=== PATIENT | female | born 1975 | race Caucasian/White ===

== ENCOUNTER 2017-09-15 21:06 | Inpatient (IN) | payer MEDICAID ==
[2017-09-15] MEDS: SODIUM CHLORIDE 0.9% 1L BAG IV* (22:26)
[2017-09-15] MEDS: morphine 4 MG/ML VIAL IV (22:26)
[2017-09-15] MEDS: CEFEPIME 2GM/50 ML (PMX) 50 ML IVPB (22:26)
[2017-09-15] MEDS: ONDANSETRON 4 MG INJ IV (22:26)
[2017-09-15 22:40] LABS: ADD MAN DIFF? NO
[2017-09-15 22:42] LABS: ABNORMAL IP MESSAGE 1; BASOPHIL # 0.1 10^3/ul (0.0-0.1); BASOPHILS % 0.2 % (0.0-2.0); EOSINOPHILS % 0.1 % (0.0-7.0); HEMATOCRIT 43.1 % (37.0-47.0); HEMOGLOBIN 14.8 g/dl (12.0-16.0); LYMPHOCYTES # 1.9 10^3/ul (0.8-2.9); LYMPHOCYTES % 8.8 % (15.0-51.0); MEAN CORPUSCULAR HEMOGLOBIN 29.6 pg (29.0-33.0); MEAN CORPUSCULAR HGB CONC 34.3 g/dl (32.0-37.0); MEAN CORPUSCULAR VOLUME 86.2 fl (82.0-101.0); MEAN PLATELET VOLUME 10.5 fl (7.4-10.4); MONOCYTE # 1.6 10^3/ul (0.3-0.9); MONOCYTES % 7.2 % (0.0-11.0); NEUTROPHIL # 17.8 10^3/ul (1.6-7.5); NEUTROPHILS % 82.9 % (39.0-77.0); PLATELET COUNT 270 10^3/UL (140-415); RED CELL DISTRIBUTION WIDTH 12.5 % (11.5-14.5)
[2017-09-15 22:42] LABS: WHITE BLOOD COUNT 21.5 10^3/ul (4.8-10.8)
[2017-09-15 22:50] LABS: POSITIVE DIFF @See below
[2017-09-15 23:00] LABS: ALANINE AMINOTRANSFERASE 57 IU/L (13-69); ALBUMIN 4.4 g/dl (3.3-4.9); ALBUMIN/GLOBULIN RATIO 1.18; ALKALINE PHOSPHATASE 116 IU/L (42-121); ANION GAP 20 (8-16); ASPARTATE AMINO TRANSFERASE 37 IU/L (15-46); BILIRUBIN,INDIRECT 0.1 mg/dl (0-1.1); BILIRUBIN,TOTAL 0.1 mg/dl (0.2-1.3); BLOOD UREA NITROGEN 18 mg/dl (7-20); CALCIUM 9.1 mg/dl (8.4-10.2); CARBON DIOXIDE 26 mmol/L (21-31); CHLORIDE 98 mmol/L (97-110); CREATININE 0.68 mg/dl (0.44-1.00); GLUCOSE 297 mg/dl (70-220); POTASSIUM 4.1 mmol/L (3.5-5.1); SODIUM 140 mmol/L (135-144); TOTAL PROTEIN 8.1 g/dl (6.1-8.1)
[2017-09-15 23:01] LABS: INR 0.88; PT RATIO 0.9
[2017-09-15 23:02] LABS: PARTIAL THROMBOPLASTIN TIME 25.4 Sec (25.0-35.0)
[2017-09-15 23:12] LABS: TROPONIN-I < 0.012 ng/ml (0.00-0.12)
[2017-09-16 00:06] LABS: URINE BLOOD (Dip) POC Trace-lysed (NEGATIVE); URINE KETONES (Dip) POC Negative (NEGATIVE); URINE LEUKOCYTE EST (Dip) POC Negative (NEGATIVE); URINE NITRITE (Dip) POC Negative (NEGATIVE); URINE TOTAL PROTEIN POC Negative (NEGATIVE)
[2017-09-16 00:29] LABS: ADD UMIC YES; UR ASCORBIC ACID NEGATIVE (NEGATIVE); UR BACTERIA FEW /HPF (NONE SEEN); UR BILIRUBIN (Dip) NEGATIVE (NEGATIVE); UR BLOOD (Dip) 1+ mg/dL (NEGATIVE); UR CLARITY SLIGHTLY CLOUDY (CLEAR); UR COLOR YELLOW (YELLOW); UR GLUCOSE (Dip) 3+ mg/dL (NEGATIVE); UR KETONES (Dip) TRACE mg/dL (NEGATIVE); UR LEUKOCYTE ESTERASE (Dip) NEGATIVE Leu/ul (NEGATIVE); UR MUCUS FEW /HPF (NONE SEEN); UR NITRITE (Dip) NEGATIVE (NEGATIVE); UR RBC 1 /HPF (0-5); UR SPECIFIC GRAVITY (Dip) 1.012 (1.003-1.030); UR SQUAMOUS EPITHELIAL CELL FEW /HPF (FEW); UR TOTAL PROTEIN (Dip) NEGATIVE (NEGATIVE); UR UROBILINOGEN (Dip) NEGATIVE (NEGATIVE); UR WBC 1 /HPF (0-5)
[2017-09-16 01:02] LABS: LACTIC ACID 1.7 mmol/L (0.5-2.0)
[2017-09-16] MEDS: metroNIDAZOLE 500 MG/NS (PMX) 100 ML IVPB (01:27)
[2017-09-16 01:52] LABS: LIPASE 66 U/L (23-300)
[2017-09-16 04:38] LABS: LACTIC ACID 1.1 mmol/L (0.5-2.0)
[2017-09-16] MEDS ORDERED: ONDANSETRON 4 MG INJ IV ×3 (05:30→19:00)
[2017-09-16] MEDS ORDERED: NACL 0.9% 3 ML SYG IV (05:30)
[2017-09-16] MEDS: PIPER-TAZO 3.375 GM IV (PMX) 100 ML IVPB ×4 (05:34→23:14)
[2017-09-16] MEDS: DEXTROSE 5%-0.45% NACL 1,000 ML IV ×2 (05:34→15:14)
[2017-09-16] MEDS: morphine 2 MG INJ IV (05:45)
[2017-09-16] MEDS ORDERED: GLUCOSE GEL 15 GRAM TUBE PO ×2 (08:30)
[2017-09-16] MEDS ORDERED: GLUCAGON 1 MG INJ IM (08:30)
[2017-09-16] MEDS ORDERED: GLUCOSE GEL 15 GRAM TUBE BUCCAL (08:30)
[2017-09-16] MEDS ORDERED: DEXTROSE 50% 50 ML SYRINGE IV ×2 (08:30)
[2017-09-16] MEDS: FAMOTIDINE 20 MG INJ IV ×2 (09:04→23:04)
[2017-09-16] MEDS: ACETAMINOPHEN 1000 MG/100 ML IVPB IVPB (09:04)
[2017-09-16 12:04] LABS: HEMOGLOBIN A1C 10.7 % (0-5.9)
[2017-09-16] MEDS: INSULIN ASPART [NOVOLOG] 3 ML PEN SC ×3 (12:15→23:12)
[2017-09-16 14:24] LABS: ALANINE AMINOTRANSFERASE 60 IU/L (13-69); ALBUMIN 4.2 g/dl (3.3-4.9); ALKALINE PHOSPHATASE 120 IU/L (42-121); ASPARTATE AMINO TRANSFERASE 41 IU/L (15-46); BILIRUBIN,INDIRECT 0.2 mg/dl (0-1.1); BILIRUBIN,TOTAL 0.2 mg/dl (0.2-1.3); TOTAL PROTEIN 7.7 g/dl (6.1-8.1)
[2017-09-16] MEDS ORDERED: LIDOCAINE 1%/EPI 30 ML INJ (18:17)
[2017-09-16] MEDS ORDERED: BUPIVACAINE 0.25% (MPF) 30 ML INJ (18:17)
[2017-09-16] MEDS ORDERED: ROCURONIUM 50 MG INJ (18:24)
[2017-09-16] MEDS ORDERED: LIDOCAINE 2% (SDV) 5 ML INJ (18:24)
[2017-09-16] MEDS ORDERED: MIDAZOLAM 1 MG/ML 2 ML INJ (18:24)
[2017-09-16] MEDS ORDERED: SUCCINYLCHOLINE CHLORIDE 100 MG/5 ML SYG IV (18:24)
[2017-09-16] MEDS ORDERED: PROPOFOL 20 ML (18:24)
[2017-09-16] MEDS ORDERED: FENTAnyl 50 MCG/ML VIAL (18:25)
[2017-09-16] MEDS ORDERED: ROPIVACAINE 0.5 % 30 ML VIAL (18:27)
[2017-09-16] MEDS ORDERED: DIPHENHYDRAMINE 50 MG INJ IV (18:30)
[2017-09-16] MEDS ORDERED: PROCHLORPERAZINE 10 MG INJ IV (18:30)
[2017-09-16] MEDS ORDERED: HYDROmorphONE (0.2 MG/ML) 10ML SYG IV (18:30)
[2017-09-16] MEDS ORDERED: FENTAnyl 50 MCG/ML VIAL IV (18:30)
[2017-09-16] MEDS ORDERED: MEPERIDINE 25 MG INJ IV (18:30)
[2017-09-16] MEDS ORDERED: ONDANSETRON 4 MG INJ (18:53)
[2017-09-16] MEDS ORDERED: FAMOTIDINE 20 MG INJ (18:53)
[2017-09-16] MEDS ORDERED: IBUPROFEN 600 MG TAB PO (19:00)
[2017-09-16] MEDS ORDERED: HYDROCODONE/APAP (5/325) TAB PO (19:00)
[2017-09-16] MEDS: LIDOCAINE 1%/EPI 30 ML INJ INJ (19:00)
[2017-09-16] MEDS: BUPIVACAINE 0.25% (MPF) 30 ML INJ INJ (19:04)
[2017-09-16] MEDS: SODIUM CHLORIDE 0.9% 1L IRRIG IRR (19:04)
[2017-09-16] MEDS ORDERED: SUGAMMADEX SODIUM 200 MG/2 ML VIAL IV ×2 (19:05→19:06)
[2017-09-16] MEDS ORDERED: ACETAMINOPHEN 1000MG/100ML IV 100 ML (19:21)
[2017-09-16] MEDS ORDERED: KETOROLAC 30 MG INJ (19:47)
[2017-09-16] MEDS ORDERED: HYDROmorphONE 2 MG/ML SYG (19:48)
[2017-09-16] MEDS: HYDROmorphONE 0.5 MG/0.5 ML SYG IV (23:02)
[2017-09-16] MEDS: D5W-0.45 NACL + KCL 20 MEQ 1,000 ML IV (23:08)
[2017-09-17] MEDS ORDERED: PIPER-TAZO 3.375 GM IV (PMX) 100 ML IVPB
[2017-09-17] MEDS: DEXTROSE 5%-0.45% NACL 1,000 ML IV (01:14)
[2017-09-17] MEDS: ACCU-CHEK XX (02:00)
[2017-09-17] MEDS: D5W-0.45 NACL + KCL 20 MEQ 1,000 ML IV (05:17)
[2017-09-17 05:45] LABS: ADD MAN DIFF? NO
[2017-09-17 05:50] LABS: WHITE BLOOD COUNT 15.3 10^3/ul (4.8-10.8)
[2017-09-17 05:50] LABS: BASOPHILS % 0.3 % (0.0-2.0); EOSINOPHILS % 0.1 % (0.0-7.0); HEMOGLOBIN 12.4 g/dl (12.0-16.0); LYMPHOCYTES # 1.6 10^3/ul (0.8-2.9); LYMPHOCYTES % 10.4 % (15.0-51.0); MEAN CORPUSCULAR HEMOGLOBIN 30.5 pg (29.0-33.0); MEAN CORPUSCULAR HGB CONC 34.4 g/dl (32.0-37.0); MEAN CORPUSCULAR VOLUME 88.7 fl (82.0-101.0); MEAN PLATELET VOLUME 10.6 fl (7.4-10.4); MONOCYTES % 6.7 % (0.0-11.0); NEUTROPHIL # 12.6 10^3/ul (1.6-7.5); NEUTROPHILS % 82.1 % (39.0-77.0); PLATELET COUNT 201 10^3/UL (140-415); RED BLOOD COUNT 4.06 10^6/ul (4.20-5.40); RED CELL DISTRIBUTION WIDTH 12.9 % (11.5-14.5)
[2017-09-17] MEDS: ACETAMINOPHEN 325 MG TAB PO ×3 (05:59→18:43)
[2017-09-17] MEDS: PIPER-TAZO 3.375 GM IV (PMX) 100 ML IVPB ×3 (05:59→17:45)
[2017-09-17] MEDS: HYDROmorphONE 0.5 MG/0.5 ML SYG IV ×4 (06:05→20:09)
[2017-09-17] MEDS: ENOXAPARIN 40 MG/0.4 ML SYG SC (06:13)
[2017-09-17 06:20] LABS: ALANINE AMINOTRANSFERASE 71 IU/L (13-69); ALBUMIN 3.3 g/dl (3.3-4.9); ALBUMIN/GLOBULIN RATIO 0.91; ALKALINE PHOSPHATASE 95 IU/L (42-121); ANION GAP 14 (8-16); ASPARTATE AMINO TRANSFERASE 90 IU/L (15-46); BILIRUBIN,INDIRECT 0.1 mg/dl (0-1.1); BILIRUBIN,TOTAL 0.1 mg/dl (0.2-1.3); BLOOD UREA NITROGEN 8 mg/dl (7-20); CALCIUM 8.4 mg/dl (8.4-10.2); CARBON DIOXIDE 26 mmol/L (21-31); CHLORIDE 106 mmol/L (97-110); CREATININE 0.61 mg/dl (0.44-1.00); GLUCOSE 214 mg/dl (70-220); SODIUM 141 mmol/L (135-144); TOTAL PROTEIN 6.9 g/dl (6.1-8.1)
[2017-09-17] MEDS: INSULIN ASPART [NOVOLOG] 3 ML PEN SC ×5 (08:16→20:15)
[2017-09-17] MEDS: FAMOTIDINE 20 MG INJ IV ×2 (08:16→20:10)
[2017-09-17] MEDS: INSULIN GLARGINE [LANtus] 3 ML PEN SC (08:17)
[2017-09-18] MEDS: PIPER-TAZO 3.375 GM IV (PMX) 100 ML IVPB ×4 (00:19→17:34)
[2017-09-18] MEDS: ACCU-CHEK XX (01:52)
[2017-09-18] MEDS ORDERED: ACCU-CHEK XX (02:00)
[2017-09-18 05:08] LABS: ADD MAN DIFF? NO
[2017-09-18 05:20] LABS: BASOPHILS % 0.3 % (0.0-2.0); EOSINOPHILS # 0.1 10^3/ul (0.0-0.5); EOSINOPHILS % 0.5 % (0.0-7.0); HEMATOCRIT 36.6 % (37.0-47.0); HEMOGLOBIN 12.4 g/dl (12.0-16.0); LYMPHOCYTES % 16.9 % (15.0-51.0); MEAN CORPUSCULAR HEMOGLOBIN 29.8 pg (29.0-33.0); MEAN CORPUSCULAR HGB CONC 33.9 g/dl (32.0-37.0); MEAN PLATELET VOLUME 10.7 fl (7.4-10.4); MONOCYTES % 8.5 % (0.0-11.0); NEUTROPHIL # 8.7 10^3/ul (1.6-7.5); NEUTROPHILS % 73.2 % (39.0-77.0); PLATELET COUNT 217 10^3/UL (140-415); RED BLOOD COUNT 4.16 10^6/ul (4.20-5.40); RED CELL DISTRIBUTION WIDTH 12.9 % (11.5-14.5)
[2017-09-18 05:20] LABS: WHITE BLOOD COUNT 11.9 10^3/ul (4.8-10.8)
[2017-09-18 05:47] LABS: ALANINE AMINOTRANSFERASE 59 IU/L (13-69); ALBUMIN 3.3 g/dl (3.3-4.9); ALBUMIN/GLOBULIN RATIO 0.82; ALKALINE PHOSPHATASE 97 IU/L (42-121); ANION GAP 15 (8-16); ASPARTATE AMINO TRANSFERASE 53 IU/L (15-46); BILIRUBIN,INDIRECT 0.2 mg/dl (0-1.1); BILIRUBIN,TOTAL 0.2 mg/dl (0.2-1.3); BLOOD UREA NITROGEN 5 mg/dl (7-20); CALCIUM 8.7 mg/dl (8.4-10.2); CARBON DIOXIDE 28 mmol/L (21-31); CHLORIDE 104 mmol/L (97-110); CREATININE 0.64 mg/dl (0.44-1.00); GLUCOSE 169 mg/dl (70-220); SODIUM 143 mmol/L (135-144); TOTAL PROTEIN 7.3 g/dl (6.1-8.1)
[2017-09-18] MEDS: HYDROmorphONE 0.5 MG/0.5 ML SYG IV ×2 (06:09→21:12)
[2017-09-18] MEDS: ENOXAPARIN 40 MG/0.4 ML SYG SC (06:09)
[2017-09-18] MEDS: INSULIN ASPART [NOVOLOG] 3 ML PEN SC ×7 (08:44→21:16)
[2017-09-18] MEDS: FAMOTIDINE 20 MG INJ IV ×2 (08:45→21:15)
[2017-09-18] MEDS: INSULIN GLARGINE [LANtus] 3 ML PEN SC (08:45)
[2017-09-18] MEDS ORDERED: LACTULOSE 30ML CUP PO (15:00)
[2017-09-18] MEDS: LACTULOSE 30ML CUP PO (15:10)
[2017-09-19] MEDS: PIPER-TAZO 3.375 GM IV (PMX) 100 ML IVPB ×3 (00:43→11:51)
[2017-09-19] MEDS: ACCU-CHEK XX (02:00)
[2017-09-19] MEDS: ENOXAPARIN 40 MG/0.4 ML SYG SC (06:25)
[2017-09-19] MEDS: INSULIN ASPART [NOVOLOG] 3 ML PEN SC ×4 (08:00→11:54)
[2017-09-19] MEDS: INSULIN GLARGINE [LANtus] 3 ML PEN SC (08:38)
[2017-09-19] MEDS: FAMOTIDINE 20 MG INJ IV (08:39)
== END 2017-09-19 16:45 | disposition home or self-care (01) | DRG 854 ==
LOC: PP2 09-16 01:30 → E/R 21:06
PROC: 0FT44ZZ Resection of Gallbladder, Percutaneous Endoscopic Approach (ICD-10-PCS; principal; 2017-09-16 18:38)
PROC: 0WQF4ZZ Repair Abdominal Wall, Percutaneous Endoscopic Approach (ICD-10-PCS; 2017-09-16 18:38)
DX: A41.9 Sepsis, unspecified organism (principal); K80.00 Calculus of gallbladder with acute cholecystitis without obstruction; K76.0 Fatty (change of) liver, not elsewhere classified; E66.01 Morbid (severe) obesity due to excess calories; E11.65 Type 2 diabetes mellitus with hyperglycemia; K42.9 Umbilical hernia without obstruction or gangrene; Z68.38 Body mass index [BMI] 38.0-38.9, adult; Z79.4 Long term (current) use of insulin
CPT/HCPCS: 36415; 71045; 74176; 74181; 76705; 80053; 80076; 81001; 81003; 81025; 82962; 83036; 83605; 83690; 84484; 85025; 85610; 85730; 87040; 87086; 88304; 93005; 96374; 96375; 99291-25

== ENCOUNTER 2017-09-23 13:45 | Emergency (ER) | payer MEDICAID | END 2017-09-23 15:55 | disposition home or self-care (01) | LOC: FTE 13:45 | DX: Z48.01 Encounter for change or removal of surgical wound dressing (principal) | CPT/HCPCS: 99281 ==

== ENCOUNTER → 2017-10-01 | Outpatient (CLI) | payer MEDICAID | END | disposition home or self-care (01) | LOC: DIB 14:26 | DX: Z02.9 Encounter for administrative examinations, unspecified (principal) ==